=== PATIENT | female | born 1980 | race Caucasian/White ===

== ENCOUNTER 2016-10-05 05:00 | Inpatient (IN) | payer OTHER ==
[2016-10-05] MEDS ORDERED: ELECTROLYTE-148 SOLN 500 ML IV ONE (06:00)
[2016-10-05 06:25] VITALS: BMI 35.1
[2016-10-05] MEDS ORDERED: ELECTROLYTE-148 SOLN 1,000 ML IV SCH (06:30)
[2016-10-05] MEDS ORDERED: CITRIC ACID/SODIUM CITRATE 30 ML UNIT-DOSE CUP PO ONE (07:00)
--- NOTE | 2016-10-05 07:20 | HP ---
Past Medical History - Primary Care Physician PCP:: Shakila Rock - Admission Chief Complaint: 35 yo P1 @ 39 wks presents for repeat c/section and bubal ligation History Source: Patient - Past Medical History ...: 7 ...Para: 1 ...Term: 1 ...: 0 ...Spon : 1 ...Induced : 4 ...LMP: 01/07/16 ... Weeks Gestation by Dates: 38.6 ...EDC by Dates: 10/13/16 ...EDC by Sono: 10/12/16 - Past Surgical History Past Surgical History: Yes: None, Hx Myomectomy: No Hx Transabdominal Cerclage: No - Smoking History Smoking history: Never smoked Have you smoked in the past 12 months: No - Alcohol/Substance Use Hx Alcohol Use: No History of Substance Use: reports: None - Social History History of Recent Travel: No Home Medications - Allergies Allergies/Adverse Reactions: Allergies Allergy/AdvReac Type Severity Reaction Status Date / Time No Known Allergies Allergy Verified 09/17/16 12:00 - Home Medications Home Medications: Ambulatory Orders Vit #108/Iron/FA [ One Tablet] 1 each PO DAILY 06/29/16 Review of Systems - Review of Systems Constitutional: reports: No Symptoms Eyes: reports: No Symptoms HENT: reports: No Symptoms Neck: reports: No Symptoms Cardiovascular: reports: No Symptoms Respiratory: reports: No Symptoms Gastrointestinal: reports: No Symptoms Genitourinary: reports: No Symptoms Breasts: reports: No Symptoms Reported Musculoskeletal: reports: No Symptoms Integumentary: reports: No Symptoms Neurological: reports: No Symptoms Endocrine: reports: No Symptoms Hematology/Lymphatic: reports: No Symptoms Psychiatric: reports: No Symptoms Physical Exam - Maternity Vital Signs: Vital Signs Temperature 97.6 F 10/05/16 06:00 Pulse Rate 75 10/05/16 06:00 Respiratory Rate 20 10/05/16 06:00 Blood Pressure 132/83 10/05/16 06:00 O2 Sat by Pulse Oximetry (%) Assessment/Plan 35 yo P1 @39wks for repeat c/section and BTL R/B/A discussed, all questions answered Patient informed of risk of bowel, bladder, vessel injury Anesthesia aware T&C x 2 Units
[2016-10-05 08:34] LABS: ARTERIAL BLD GAS O2 SATURATION 52.3 % (90-98.9); ARTERIAL BLOOD GAS BASE EXCESS -2.1 meq/l (-2-2); ARTERIAL BLOOD GAS HCO3 23.7 meq/L (22-26); ARTERIAL BLOOD GAS pH 7.32 (7.35-7.45); LPM/O2% 21%; PT. ON O2? no
[2016-10-05 08:35] LABS: ARTERIAL BLOOD GAS PO2 25.8 mmHg (80-100); TYPE OF O2 ROOM AIR
[2016-10-05 08:37] LABS: ARTERIAL BLD GAS O2 SATURATION 9.9 % (90-98.9); ARTERIAL BLOOD GAS BASE EXCESS -3.4 meq/l (-2-2); ARTERIAL BLOOD GAS HCO3 24.8 meq/L (22-26); ARTERIAL BLOOD GAS pH 7.23 (7.35-7.45)
[2016-10-05 08:38] LABS: ARTERIAL BLOOD GAS PO2 12.3 mmHg (80-100); LPM/O2% 21%; PT. ON O2? NO; TYPE OF O2 ROOM AIR
--- NOTE | 2016-10-05 09:10 | PN ---
Delivery - Delivery Section: Repeat Type of Anesthesia: Spinal (Fluids 1800cc) EBL (cc): 700 (UO 200cc) Delivery, Single - Stages of Labor Date of Delivery: 10/05/16 Time of Delivery: : Date Placenta Delivered: 10/05/16 Time Placenta Delivered: : Placenta: Yes: Expressed - Condition of Infant Event Av Operator/Coil Wrapper Present: Yes Name: Yousif Gomez Gender: Male Weight: 8 lb 2 oz Position: Right, OT - 1 Minute Total Score: 9 5 Minutes Total Score: 9 - Feeding Plan Initial Plan: Exclusive throughout hospitalization Benefits of Exclusively reinforced: Yes Remarks - Remarks Remarks: Baby had cord around the neck once uncomplicated delivery multiple omental adhesions, removed all layers closed uterine incision closed twice
[2016-10-05] MEDS ORDERED: WITCH HAZEL 50% (TUCKS) 40 PAD/JAR PAD TP PRN (09:14)
[2016-10-05] MEDS ORDERED: IBUPROFEN 800 MG/8 ML IJ IVPB PRN (09:14)
[2016-10-05] MEDS ORDERED: BENZOCAINE 20% 57 GM BOTTLE TP PRN (09:14)
[2016-10-05] MEDS ORDERED: METHYLERGONOVINE MALEATE 0.2 MG/1 ML AMP IM PRN (09:14)
[2016-10-05] MEDS ORDERED: BENZOCAINE 28 GM HEMORRHOIDAL OINTMENT PR PRN (09:14)
[2016-10-05] MEDS ORDERED: diphenhydrAMINE HCL 25 MG CAPSULE (FP) PO PRN (09:14)
[2016-10-05] MEDS ORDERED: OXYTOCIN 20 UNITS in 0.9% NS 1,000 ML IV SCH (09:15)
[2016-10-05] MEDS ORDERED: DEXTROSE 5%-LACTATED RINGERS 1,000 ML IV SCH ×2 (09:15→17:15)
[2016-10-05] MEDS ORDERED: ONDANSETRON 4 MG/2 ML VIAL IVPUSH PRN (09:16)
[2016-10-05] MEDS: IBUPROFEN 800 MG/8 ML IJ IVPB PRN (11:02)
[2016-10-06] MEDS: IBUPROFEN 800 MG/8 ML IJ IVPB PRN (00:24)
[2016-10-06 08:34] LABS: BASOPHIL 0.2 % (0-2.0); EOSINOPHIL 0.9 % (0-4.5); MCH 28.1 pg (25.7-33.7); MCHC 33.9 g/dl (32.0-36.0); MEAN CELL VOLUME 82.8 fl (80-96); NEUTROPHILS 77.5 % (42.8-82.8); PLATELET COUNT 128 K/MM3 (134-434); RDW 15.5 % (11.6-15.6); WHITE BLOOD COUNT 8.7 K/mm3 (4.0-10.0)
[2016-10-06] MEDS ORDERED: BISACODYL 10 MG SUPP.RECT RC PRN (09:14)
[2016-10-06] MEDS: IBUPROFEN 600 MG TABLET (FP) PO PRN ×2 (13:33→22:05)
[2016-10-06] MEDS: SIMETHICONE 80 MG TAB.CHEW (FP) PO PRN ×2 (13:35→22:05)
[2016-10-06] MEDS: oxyCODONE HCL 5 MG TABLET PO PRN ×2 (13:35→22:06)
--- NOTE | 2016-10-06 17:55 | PN ---
Post Progress Note - Subjective Subjective: No complaints, has flatus, no nausea/vomiting Post Day: 1 Type of Delivery: Repeat C/S Vital Signs: Vital Signs Temperature 98.2 F 10/06/16 14:00 Pulse Rate 104 H 10/06/16 14:00 Respiratory Rate 18 10/06/16 15:00 Blood Pressure 132/79 10/06/16 14:00 O2 Sat by Pulse Oximetry (%) 100 10/05/16 10:30 Breast Exam: Yes: Soft Uterus: Yes: Fundus Firm, Fundus below umbilicus Incision: Yes: Dressing dry and intact Abdomen/GI: Yes: Abdomen soft, Passing flatus, Tolerating PO Lochia: Yes: Rubra Lochia, amount: Small Extremities: Yes: Calves non-tender, Edema Perineum: Yes: Intact Activity: Ambulating - Labs Labs: CBC WBC 8.7 K/mm3 (4.0-10.0) D 10/06/16 07:20 RBC 4.29 M/mm3 (3.60-5.2) 10/06/16 07:20 Hgb 12.0 GM/dL (10.7-15.3) D 10/06/16 07:20 Hct 35.5 % (32.4-45.2) 10/06/16 07:20 MCV 82.8 fl (80-96) 10/06/16 07:20 MCHC 33.9 g/dl (32.0-36.0) 10/06/16 07:20 RDW 15.5 % (11.6-15.6) 10/06/16 07:20 Plt Count 128 K/MM3 (134-434) L 10/06/16 07:20 MPV 10.0 fl (7.5-11.1) 10/06/16 07:20 Neutrophils % 77.5 % (42.8-82.8) 10/06/16 07:20 Lymphocytes % 14.1 % (8-40) D 10/06/16 07:20 Monocytes % 7.3 % (3.8-10.2) 10/06/16 07:20 Eosinophils % 0.9 % (0-4.5) 10/06/16 07:20 Basophils % 0.2 % (0-2.0) 10/06/16 07:20 Assessment/Plan 35yo POD#1, s/p primary LT C/S, doing well stable, afebrile. care instructions reviewed. Continue routine postop care. Ambulation encouraged.
--- NOTE | 2016-10-06 17:55 | PN ---
Progress Note, Physician Chief Complaint: Pt. ambulating and voiding, pain controlled, no DENG. - Current Medication List Current Medications: Active Medications Benzocaine (Americaine Ointment -) [address] PRN PRN PRN Reason: PAIN Benzocaine (Americaine 20% Caroleen -) 1 spray TP PRN PRN PRN Reason: PAIN Bisacodyl (Dulcolax Suppository -) 10 mg RC PRN PRN PRN Reason: CONSTIPATION Diphenhydramine HCl (Benadryl Injection -) 25 mg IVPUSH Q4H PRN PRN Reason: itching Diphenhydramine HCl (Benadryl -) 25 mg PO Q8H PRN PRN Reason: FOR ITCHING Ibuprofen (Motrin -) 600 mg PO Q4H PRN PRN Reason: PAIN Last Admin: 10/06/16 13:33 Dose: 600 mg Methylergonovine Maleate (Methergine Injection -) 0.2 mg IM Q4H PRN PRN Reason: EXCESSIVE BLEEDING Oxycodone HCl (Roxicodone -) 5 mg PO Q4H PRN PRN Reason: PAIN LEVEL 1-5 Stop: 10/09/16 23:59 Last Admin: 10/06/16 13:35 Dose: 5 mg Senna/Docusate Sodium (Pericolace -) 1 tablet PO HS PRN PRN Reason: CONSTIPATION Simethicone (Mylicon -) 80 mg PO Q4H PRN PRN Reason: GAS Last Admin: 10/06/16 13:35 Dose: 80 mg Witch Brooke/Glycerin (Tucks Pads -) 1 pad TP PRN PRN PRN Reason: PAIN - Objective Vital Signs: Vital Signs Temperature 98.2 F 10/06/16 14:00 Pulse Rate 104 H 10/06/16 14:00 Respiratory Rate 18 10/06/16 15:00 Blood Pressure 132/79 10/06/16 14:00 O2 Sat by Pulse Oximetry (%) 100 10/05/16 10:30 Constitutional: Yes: Well Nourished, No Distress, Calm Musculoskeletal: Yes: WNL Neurological: Yes: WNL, Alert, Oriented ...Motor Strength: WNL Labs: CBC, BMP 10/06/16 07:20 Assessment/Plan POD#1 s/p Repeat under spinal with duramorph. Doing well. D/C from anesthesia care.
--- NOTE | 2016-10-06 21:32 | OP ---
DATE OF OPERATION: 10/05/2016 Surgeon: Paloma Gray MD Order Manager: MD Nivia PREOPERATIVE DIAGNOSIS: A 35-year-old para 1 at 39 weeks for repeat section and bilateral tubal ligation POSTOPERATIVE DIAGNOSIS: A 35-year-old para 1 at 39 weeks for repeat section and bilateral tubal ligation PROCEDURE: Repeat section and bilateral tubal ligation. Low segment transverse section via Pfannenstiel skin incision and resection of bilateral tubes. INDICATION: Elective repeat section. History of cerclage during the . Multiparity. ANESTHESIA: Spinal. ESTIMATED BLOOD LOSS: 700 mL. URINE OUTPUT: 200 mL. FLUIDS RECEIVED: 18 mL. FINDINGS: Viable male with Apgars 9/9, weight 5 pounds 2 ounces in right occiput transverse. Normal maternal anatomy with uterus, tubes, and ovaries. Copious omental adhesions to the anterior abdominal wall. DESCRIPTION OF PROCEDURE: After informed consent was obtained, the patient was taken to the operating room where she was placed in dorsal supine position with left lateral tilt after the spinal anesthesia was administered and found to be adequate. Pfannenstiel skin incision was made with scalpel and carried down to the level of fascia. Fascia was dissected bilaterally with electrocautery. Superior and inferior aspects of fascia were elevated with Jose clamps and dissected inferiorly and then superiorly off the muscle bellies with Bovie electrocautery. Median raphe was dissected as well away from the overlying fascia. Rectus muscle was in the midline. Peritoneum was identified and entered bluntly with good visualization of underlying organs. The peritoneal defect was extended by stretching. The abdominal cavity was entered, and uterus was found to be midline. Bladder flap was created by resecting vesicouterine peritoneum and retracted with bladder blade. The hysterotomy incision was created with a scalpel and extended bilaterally with bandage scissors. Tactical Air Control Party hand was inserted into the uterine cavity grasping the 's vertex, which was delivered atraumatically. Cord around the neck was noted and reduced x1. Entire infant was delivered atraumatically. Cord was doubly clamped and cut, and infant was handed to pediatric team including weave defect charting clerk. The external uterine massage and gentle traction. The uterus was subsequently repaired after it was cleared of clots and debris. It was repaired with 0 Biosyn stitch in 2 running, locking sutures. Excellent hemostasis was obtained, and bilateral tubes were resected off mesosalpinx, tied with free ties, and sent to Pathology. Majority of each tube above the ampullary region was resected and sent to Pathology. Subsequently, the peritoneum was closed with 0 Biosyn. Rectus muscle was reapproximated in the midline. Fascia closed with 0 Vicryl sutures meeting at midline. Subcutaneous tissue was irrigated, electrocauterized, and reapproximated with 2-0 chromic, and skin subsequently was closed with 4-0 Biosyn. All lap, sponge, and needle count was consulted x2. Antibiotics were given prior to the incision. The patient tolerated the procedure well and was taken to the recovery room in stable condition. PALOMA GRAY M.D. [id number] MTDD
[2016-10-07] MEDS: oxyCODONE HCL 5 MG TABLET PO PRN ×3 (06:13→21:17)
[2016-10-07] MEDS: SIMETHICONE 80 MG TAB.CHEW (FP) PO PRN ×3 (06:13→21:17)
[2016-10-07] MEDS: IBUPROFEN 600 MG TABLET (FP) PO PRN ×3 (06:14→21:18)
[2016-10-07] MEDS ORDERED: SENNOSIDES/DOCUSATE COMBO (SENNA PLUS) TABLET (UD) PO PRN (22:00)
[2016-10-08 07:08] LABS: BASOPHIL 0.3 % (0-2.0); EOSINOPHIL 2.6 % (0-4.5); MCH 28.2 pg (25.7-33.7); MCHC 34.3 g/dl (32.0-36.0); MEAN CELL VOLUME 82.3 fl (80-96); MEAN PLT VOLUME 9.5 fl (7.5-11.1); NEUTROPHILS 82.3 % (42.8-82.8); PLATELET COUNT 148 K/MM3 (134-434); RDW 15.9 % (11.6-15.6); WHITE BLOOD COUNT 9.3 K/mm3 (4.0-10.0)
[2016-10-08] MEDS: oxyCODONE HCL 5 MG TABLET PO PRN (07:40)
[2016-10-08] MEDS: SIMETHICONE 80 MG TAB.CHEW (FP) PO PRN (07:41)
[2016-10-08] MEDS: IBUPROFEN 600 MG TABLET (FP) PO PRN ×2 (07:41→13:56)
[2016-10-08 11:10] VITALS: BP 138/87; PULSE 103; TEMP 99.3
--- NOTE | 2016-10-08 12:28 | PN ---
Post Progress Note - Subjective Subjective: No complaint, has flatus and BM. The pt wants to go home today. Post Day: 3 Type of Delivery: Repeat C/S Vital Signs: Vital Signs Temperature 99.3 F 10/08/16 10:00 Pulse Rate 103 H 10/08/16 10:00 Respiratory Rate 20 10/08/16 10:00 Blood Pressure 138/87 10/08/16 10:00 O2 Sat by Pulse Oximetry (%) 100 10/05/16 10:30 Breast Exam: Yes: Soft, Engorged Uterus: Yes: Fundus Firm, Fundus below umbilicus Incision: Yes: Sutures intact Abdomen/GI: Yes: Abdomen soft, Passing flatus, Tolerating PO Lochia: Yes: Rubra Lochia, amount: Small Extremities: Yes: Calves non-tender Perineum: Yes: Intact Activity: Ambulating - Labs Labs: CBC WBC 9.3 K/mm3 (4.0-10.0) 10/08/16 06:35 RBC 3.95 M/mm3 (3.60-5.2) 10/08/16 06:35 Hgb 11.2 GM/dL (10.7-15.3) 10/08/16 06:35 Hct 32.5 % (32.4-45.2) 10/08/16 06:35 MCV 82.3 fl (80-96) 10/08/16 06:35 MCHC 34.3 g/dl (32.0-36.0) 10/08/16 06:35 RDW 15.9 % (11.6-15.6) H 10/08/16 06:35 Plt Count 148 K/MM3 (134-434) 10/08/16 06:35 MPV 9.5 fl (7.5-11.1) 10/08/16 06:35 Neutrophils % 82.3 % (42.8-82.8) 10/08/16 06:35 Lymphocytes % 9.6 % (8-40) D 10/08/16 06:35 Monocytes % 5.2 % (3.8-10.2) 10/08/16 06:35 Eosinophils % 2.6 % (0-4.5) D 10/08/16 06:35 Basophils % 0.3 % (0-2.0) 10/08/16 06:35 Assessment/Plan 35yo POD#3, s/p repeat LT C/S, doing well stable, afebrile. care instructions reviewed. Discharge instructions reviewed. Continue routine postop care. Ambulation encouraged.
--- NOTE | 2016-10-12 15:37 | PATH ---
Surgical Pathology Report Patient Name: KELSEY OROZCO [facility]. Rec. #: [id number] /Age/Gender: 1980 (Age: 35) / F Account: [id number] Location: [facility] OBS/CORROSION ENGINEER Taken: 10/05/2016 Received: 10/08/2016 Reported: 10/12/2016 Physicians: Shakila Rock M.D. Specimen(s) Received A: PLACENTA B: PORTION LEFT FALLOPIAN TUBE C: PORTION RIGHT FALLOPIAN TUBE Clinical History G7P, c/section 2008-failure to dilate; ectopic 2014, induced abortions x4, cerclage with first and this (removed 09/17/16) Repeat c/section with BTL Final Diagnosis A. PLACENTA, DELIVERY: FOCALLY DISRUPTED THIRD TRIMESTER PLACENTA WITH FOCAL FIBRIN THROMBUS, MILD INCREASE IN PREVILLOUS, PERIVILLOUS, AND PRECHORIONIC FIBRIN DEPOSITION, THREE VESSEL UMBILICAL CORD, AND UNREMARKABLE PLACENTAL MEMBRANES. B. PORTION OF FALLOPIAN TUBE, LEFT, LIGATION: FIMBRIATED PORTION OF FALLOPIAN TUBE WITH COMPLETE CROSS SECTION. C. PORTION OF FALLOPIAN TUBE, RIGHT, LIGATION: FIMBRIATED PORTION OF FALLOPIAN TUBE WITH COMPLETE CROSS SECTION. Electronically Signed Galileo Lindo M.D. Gross Description A. The specimen is received fresh, labeled "placenta" and is a 560 gram, 17.5 x 14.0 x 3.0 cm placenta with attached membranes and umbilical cord. The attached membranes are burgess, translucent with focal opacities and insert marginally. The umbilical cord measures 24 cm in length and averages 0.9 cm in diameter. The cord inserts eccentrically, 5.5 cm to the nearest margin. No true knots or strictures are identified. Cut surface of the umbilical cord reveals 3 vessels. The surface is cuevas-blue with fibrin deposition and appropriate caliber vessels. The maternal surface is red-brown with focal defects. Sectioning reveals a 2.0 cm in greatest dimension burgess intraparenchymal lesion. The remaining placental parenchyma is red-brown and spongy. Warehouse Distribution Specialist sections are submitted in 4 cassettes as follows: 1-membrane rolls and umbilical cord; 2-lesion; 3-4-full thickness sections of placenta. B. Received in formalin, labeled "portion of left fallopian tube" is a 3.5 cm in length fimbriated portion of fallopian tube. The outer surface is burgess-edgar and smooth. Sectioning reveals a pinpoint lumen. Warehouse Distribution Specialist sections are submitted in 2 cassettes as follows: 1-fimbria; 2-cross sections of fallopian tube. C. Received in formalin, labeled "portion of right fallopian tube" is a 3 cm in length fimbriated portion of fallopian tube. The outer surface is burgess-edgar and smooth. Sectioning reveals a pinpoint lumen. Warehouse Distribution Specialist sections are submitted in 2 cassettes as follows: 1-fimbria; 2-cross sections of fallopian tube. 10/11/2016 [facility]10/11/2016
--- NOTE | 2016-11-06 16:11 | DS ---
Physical Exam-GLASS BREAKER Vital Signs: Vital Signs Temperature 99.3 F 10/08/16 10:00 Pulse Rate 103 H 10/08/16 10:00 Respiratory Rate 20 10/08/16 10:00 Blood Pressure 138/87 10/08/16 10:00 O2 Sat by Pulse Oximetry (%) 100 10/05/16 10:30 Constitutional: Yes: Well Nourished HENT: Yes: WNL Neck: Yes: WNL Cardiovascular: Yes: WNL Respiratory: Yes: CTA Bilaterally Gastrointestinal: Yes: Normal Bowel Sounds, Soft Vaginal Exam: Yes: Normal ....Post : Yes: Uterus firm, Uterus non-tender, Slight lochia rubra Breast(s): Yes: WNL Musculoskeletal: Yes: WNL Extremities: Yes: WNL Wound/Incision: Yes: Clean/Dry, Well Approximated Labs: CBC, BMP 10/08/16 06:35 Delivery - Delivery Section: Repeat Type of Anesthesia: Spinal Episiotomy/Laceration: None EBL (cc): 700 Delivery, Single - Stages of Labor Date of Delivery: 10/05/16 Time of Delivery: 08:08 Time Placenta Delivered: 08:07 Placenta: Yes: Expressed - Condition of Fleecer/Global Position System Technician Present: Yes Name: Talia Soto Gender: Male Weight: 8 lb 2 oz Position: Right, OT Total Hours ROM (Hrs/Mins): 0/2 - 1 Minute Total Score: 9 5 Minutes Total Score: 9 - [place] Feeding Plan Initial Plan: Exclusive throughout hospitalization Benefits of Exclusively reinforced: Yes Discharge Summary Reason For Visit: REPEAT C/S Procedures: Principal: C/section and Tubal ligation Condition: Good - Instructions Diet, Activity, Other Instructions: Physical activity Resume your normal everyday activity as tolerated no heavy lifting or exercise until seen by your surgeon. You may walk unlimited terese of and climb stairs. You may resume driving the car when you feel safe and comfortable behind the wheel. No sexual activity as instructed. Wound care If you have a bandage, leave it on, and keep dry for 48-72 hours. After that time discard the outer bandage. If they are tapes on the skin under the out of bandage leave them in place. They will peel off in the next 7 to 10 days. Do Not Peel them off. You may shower the day after surgery. If there are tapes present on the skin, you may shower over them. Diet There are no dietary restrictions. Eat healthy, high-fiber foods. Drink 6 to 8 glasses of liquid each day. This will assist in keeping your bowels are regular. Pain management You may take Tylenol or acetaminophen or Ibuprofen (for example, Motrin, Advil etc.) from my pain prescription medication is ordered should be taken as prescribed for moderate to severe pain. Call MD for any of the following: Severe pain not relieved by medication Fever of 101 or higher Excessive bleeding or drainage on dressing Inability to urinate Referrals: Shakila Rock MD [Staff Physician] - Disposition: HOME - Home Medications Comprehensive Discharge Medication List: Ambulatory Orders Vit #108/Iron/FA [ One Tablet] 1 each PO DAILY 06/29/16 Oxycodone HCl/Acetaminophen [Percocet 5-325 mg Tablet -] 1 - 2 tab PO Q6H PRN # 20 tab MDD 8 10/08/16
== END 2016-10-08 15:54 | disposition home or self-care (01) | DRG 766 ==
LOC: JLDR 05:00 → J3W 10:50
PROVIDERS: ADMIT Obstetrics & Gynecology; ATTEND Obstetrics & Gynecology
PROC: 10D00Z1 Extraction of Products of Conception, Low, Open Approach (ICD-10-PCS; principal; 2016-10-05)
PROC: 0UL70ZZ Occlusion of Bilateral Fallopian Tubes, Open Approach (ICD-10-PCS; 2016-10-05)
DX: O34.219 Maternal care for unspecified type scar from previous cesarean delivery (principal); Z3A.39 39 weeks gestation of pregnancy; Z30.2 Encounter for sterilization; O09.523 Supervision of elderly multigravida, third trimester; Z37.0 Single live birth
CPT/HCPCS: 36415; 36600; 82803; 85025; 86850; 86900; 86901; 88302-TC; 88307-TC

== ENCOUNTER 2019-03-31 08:26 | Day surgery (SDC) | payer OTHER | END 2019-03-31 14:55 | disposition home or self-care (01) | LOC: JASU-SURG 08:26 ==